=== PATIENT | female | born 1990 | race Caucasian/White ===

== ENCOUNTER → 2017-12-24 | Outpatient (REF) | payer OTHER ==
[2017-12-27 14:12] LABS: HPV HYBRID CAPTURE II Negative (Negative)
== END ==
LOC: M LAB REF 13:43
DX: Z12.4 Encounter for screening for malignant neoplasm of cervix (principal); R87.610 Atypical squamous cells of undetermined significance on cytologic smear of cervix (ASC-US)
CPT/HCPCS: G0123

== ENCOUNTER 2019-04-08 05:44 | Inpatient (IN) | payer OTHER ==
[2019-04-08] VITALS (39 sets, daily range): BP systolic 79–118; BP diastolic 48–83
[~2019-04-08] VITALS: Ht 167.6 cm; Wt 84.8 kg
[2019-04-08] MEDS ORDERED: PRENTAB9 PO (06:21)
[2019-04-08 07:12] LABS: HEMATOCRIT 35.6 % (36.0-47.0); MEAN CORPUSCULAR HEMOGLOBIN 30.8 pg (27.0-33.0); MEAN CORPUSCULAR HGB CONC 33.7 g/dl (32.0-36.5); MEAN CORPUSCULAR VOLUME 91.5 fl (80.0-96.0); PLATELET COUNT, AUTOMATED 259 10^3/uL (150-450); RED BLOOD COUNT 3.89 10^6/uL (4.00-5.40); WHITE BLOOD COUNT 14.2 10^3/uL (4.0-10.0)
[2019-04-08] MEDS ORDERED: LR 800 ML IV ONE (07:30)
--- NOTE | 2019-04-08 07:45 | HPE ---
DATE OF ADMISSION: 04/08/2019 HISTORY: 28-year-old G1, P0 female at 40 and 2/7 weeks gestation by last menstrual period (LMP) consistent with 9-week ultrasound and estimated date of delivery 04/06/2019, presents with regular contractions every 3-4 minutes for the last several hours. Denies vaginal bleeding. Has good movement. The contractions have increased in intensity. COURSE: Patient received care at 9 weeks gestation on 09/02/2018. Her first trimester blood pressure is 102/60, weight 154 pounds. She had no complications. 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 PAST SURGICAL HISTORY: Eye surgery times three. Surgical treatment for Bartholin's gland cyst. ALLERGIES: None. SOCIAL HISTORY: Patient is . She denies cigarettes, alcohol or drug use. Lives in [facility]. FAMILY HISTORY: Noncontributory. PHYSICAL EXAMINATION: Blood pressure 134/70, pulse 84, afebrile. She appears uncomfortable. Head and neck exam normal. Lungs clear. Heart regular rate and rhythm. Abdomin nontender, gravid. heart tones category I. Sterile vaginal exam: 4 cm, 100%, -2, posterior soft vertex, contractions every 2-3 minutes. Extremities nontender. LABS: Blood type A positive, rubella immune, RPR nonreactive. Hepatitis B and C negative. HIV negative. GBS negative on 03/13/2019. ASSESSMENT: 28-year-old G1 at 40 2/7 weeks gestation presents in active labor. PLAN: The patient is admitted on 04/08/2019.
[2019-04-08] MEDS ORDERED: FENTANYL 2MCG/ML ROPIVACAINE 0.2% IN 0.9% NACL 100ML IVBAG As Ordered ONE (08:03)
[2019-04-08] MEDS ORDERED: FENTANYL/ROPIVACAINE/NACL BAG 100 ML EPIDURAL SCH (08:35)
[2019-04-08] MEDS ORDERED: NALOXONE INJ 0.4 MG/1 ML VIAL (J2310) IV PRN (08:35)
[2019-04-08] MEDS ORDERED: EPIDURAL/PCA KEYS XX PRN (08:35)
[2019-04-08] MEDS ORDERED: REFRIGERATOR IV KEYS XX PRN (08:35)
[2019-04-08] MEDS ORDERED: LACTATED RINGER'S 1000 ML IV PRN (08:35)
[2019-04-08] MEDS ORDERED: EPIDURAL COMMENT XX SCH (08:35)
[2019-04-08] MEDS ORDERED: diphenhydrAMINE INJ 50MG/ML VIAL (J1200) IV PRN (08:35)
[2019-04-08] MEDS ORDERED: ONDANSETRON 4MG/2ML VIAL (J2405) IV PRN ×2 (08:35→17:45)
[2019-04-08] MEDS ORDERED: ePHEDrine SULFATE 25 MG/5 ML(5MG/ML) SYRINGE IV PRN (08:35)
[2019-04-08] MEDS ORDERED: LR 1,000 ML IV SCH (09:00)
[2019-04-08] MEDS ORDERED: ePHEDrine SULFATE 25 MG/5 ML(5MG/ML) SYRINGE As Ordered ONE (09:04)
[2019-04-08] MEDS ORDERED: OXYTOCIN DRIP 30 UNITS in APPROPRIATE DILUENT 1 EA IV SCH (13:30)
[2019-04-08] MEDS ORDERED: METHYLERGONOVINE MALEATE 0.2 MG TAB PO PRN (17:45)
[2019-04-08] MEDS ORDERED: OXYTOCIN DRIP 30 UNITS in APPROPRIATE DILUENT 1 EA IV ONE (17:45)
[2019-04-08] MEDS ORDERED: RHOGAM 300 MCG (1500 IU) INJ (J2790) IM SCH (17:45)
[2019-04-08] MEDS ORDERED: ACETAMINOPHEN 500 MG TAB PO PRN (17:45)
[2019-04-08] MEDS ORDERED: MEASLES,MUMPS,RUBELLA VACCINE INJ (MMR-II) (90707) SC SCH (17:45)
[2019-04-08] MEDS ORDERED: DIBUCAINE 1% OINTMENT 30GM TOP PRN (17:45)
[2019-04-08] MEDS ORDERED: DOCUSATE SODIUM 100 MG CAP PO PRN (17:45)
--- NOTE | 2019-04-08 19:20 | DN ---
DATE: 04/08/2019 PREDELIVERY DIAGNOSIS: Term in labor. POSTDELIVERY DIAGNOSIS: Delivered. PROCEDURE: Spontaneous vaginal delivery. LAND DEVELOPER: Dr. Martin Schroeder. ANESTHESIA: Epidural. ESTIMATED BLOOD LOSS: 300 mL. FINDINGS: A 7 pound 14 ounce female with scores 8 and 9. DELIVERY SUMMARY: After approximately one hour of second stage of labor, the patient had spontaneous delivery of a 7 pound 14 ounce female under epidural anesthesia. There is no nuchal cord. The shoulders delivered with ease. The was handed to the mother. The cord was doubly clamped and cut. The placenta delivered spontaneously and appeared to be intact. The patient received intravenous (IV) Pitocin immediately after delivery of the placenta. A first degree perineal laceration was repaired with #2-0 Chromic in the usual fashion. Sponge and needle counts were correct.
[2019-04-09 06:36] VITALS: BP 102/55
[2019-04-09] MEDS: PRENATAL VITAMINS CHEWABLE TABLET PO SCH (08:22)
[2019-04-09 17:28] VITALS: BP 120/60
[2019-04-09] MEDS: IBUPROFEN 800 MG TAB PO PRN (20:51)
[2019-04-10 05:10] VITALS: BP 109/65
[2019-04-10] MEDS: IBUPROFEN 800 MG TAB PO PRN ×2 (05:12→13:20)
[2019-04-10] MEDS ORDERED: PRENCHW PO (06:53)
[2019-04-10] MEDS ORDERED: ACET-683 PO (06:53)
[2019-04-10] MEDS ORDERED: IBUP80TA PO (06:53)
[2019-04-10] MEDS: PRENATAL VITAMINS CHEWABLE TABLET PO SCH (08:07)
== END 2019-04-10 14:23 | disposition home or self-care (01) | DRG 807 ==
LOC: M LDO 05:44 → M LDI 06:31 → M OBS 20:07
PROVIDERS: ADMIT Advanced Practice Midwife; ATTEND Specialist
PROC: 10E0XZZ Delivery of Products of Conception, External Approach (ICD-10-PCS; principal; 2019-04-08)
PROC: 0HQ9XZZ Repair Perineum Skin, External Approach (ICD-10-PCS; 2019-04-08)
DX: O48.0 Post-term pregnancy (principal); Z37.0 Single live birth; Z3A.40 40 weeks gestation of pregnancy; O70.0 First degree perineal laceration during delivery

== ENCOUNTER → 2019-07-22 | Outpatient (REF) ==
[~2019-07-22] MED LIST: ACET-683 PO; IBUP80TA PO; PRENCHW PO; PRENTAB9 PO
== END ==
LOC: M LAB LCGH 09:10
PROVIDERS: ATTEND Physician Assistant
DX: D22.62 Melanocytic nevi of left upper limb, including shoulder (principal)

== ENCOUNTER → 2020-04-28 | Outpatient (REF) | payer BC ==
[2020-04-28 16:03] LABS: HEMATOCRIT 39.2 % (36.0-47.0); HEMOGLOBIN 13.1 g/dl (12.0-15.5); MEAN CORPUSCULAR HEMOGLOBIN 30.7 pg (27.0-33.0); MEAN CORPUSCULAR HGB CONC 33.4 g/dl (32.0-36.5); MEAN CORPUSCULAR VOLUME 91.8 fl (80.0-96.0); PLATELET COUNT, AUTOMATED 236 10^3/uL (150-450); RED BLOOD COUNT 4.27 10^6/uL (4.00-5.40); WHITE BLOOD COUNT 9.4 10^3/uL (4.0-10.0)
[2020-04-28 20:44] LABS: CHLAMYDIA DNA AMPLIFICATION NEGATIVE (NEGATIVE); GC DNA AMPLIFICATION NEGATIVE (NEGATIVE)
[2020-04-28 22:57] LABS: HIV 1&2 SCREEN CENTAUR NEGATIVE (NEGATIVE)
[2020-04-30 10:07] LABS: HEPATITIS C VIRUS ABY INDEX 0.3 INDEX (<0.8)
== END ==
LOC: M PLALAB 13:52
PROVIDERS: ATTEND Advanced Practice Midwife
DX: Z34.91 Encounter for supervision of normal pregnancy, unspecified, first trimester (principal)

== ENCOUNTER → 2020-05-27 | Outpatient (REF) | payer BC | LOC: M SFHCWAGY 07:40 | PROVIDERS: ATTEND Advanced Practice Midwife | DX: Z12.4 Encounter for screening for malignant neoplasm of cervix (principal) ==

== ENCOUNTER → 2020-06-28 | Outpatient (CLI) | payer BC ==
--- NOTE | 2020-07-02 08:29 | REP ---
OBSTETRIC ULTRASOUND CLINICAL: Anatomical assessment. TECHNIQUE: Transabdominal obstetrical ultrasound with color Doppler evaluation. FINDINGS: Single live intrauterine in cephalic presentation. motion was identified by the technologist. Placenta noted posteriorly, grade 1, and without placenta previa or abruption. Amniotic fluid volume is normal. Cervix measures 4 cm in length and appears closed. BIOMETRIC MEASUREMENTS: BPD 43 mm 19 weeks 1 day HC 160 mm 18 weeks 6 days AC 135 mm 19 weeks 0 days FL 29 mm 19 weeks 0 days HL 28 MM 19 weeks 0 days Gestational age by current measurements 19 weeks 0 days with estimated date of delivery 11/22/2020. Estimated weight 266 grams (42nd percentile). Anatomical assessment demonstrates normal cisterna magna, cavum, thalamus, spine, stomach, kidneys/bladder, three-vessel cord/cord insertion, facial features, and extremities. Limited evaluation of the heart/ventricular outflow tracts noted. IMPRESSION: 1. Single live intrauterine in cephalic presentation demonstrating appropriate estimated weight and growth. 2. Limited evaluation of the heart/ventricular outflow tracts noted. Remainder of the anatomical assessment is complete and normal. MTDD
== END ==
LOC: M WHC 13:58
PROVIDERS: ATTEND Advanced Practice Midwife
DX: Z34.82 Encounter for supervision of other normal pregnancy, second trimester (principal)

== ENCOUNTER → 2020-07-28 | Outpatient (CLI) | payer BC ==
--- NOTE | 2020-08-05 09:44 | REP ---
FOLLOW-UP OBSTETRICAL ULTRASOUND CLINICAL: Anatomical reevaluation. FINDINGS: Ultrasound examination demonstrates a single live intrauterine in cephalic presentation. motion was identified by the technologist. Placenta noted posteriorly and grade 1 without placenta previa or abruption. Amniotic fluid volume is normal. Cervix measures 3.0 cm in length and appears closed. No evidence for nuchal cord. Gestational age by current measurements 23 weeks 4 days with estimated date of delivery 11/20/2020. heart rate 156 beats per minute. HC/AC ratio 1.12. Estimated weight 633 grams (55th percentile). Anatomical assessment demonstrates normal cranium, cerebellum, ventricles, choroid plexus, posterior fossa, cisterna magna, facial features, four chamber heart/ventricular outflow tracts, diaphragm, stomach, three-vessel cord/cord insertion, kidneys, bladder, spine, and extremities. IMPRESSION: Single live intrauterine in cephalic presentation demonstrating appropriate estimated weight and growth. Anatomical assessment is complete and normal. No gross abnormalities are identified. MTDD
== END ==
LOC: M WHC 13:47
PROVIDERS: ATTEND Advanced Practice Midwife
DX: Z34.82 Encounter for supervision of other normal pregnancy, second trimester (principal); Z3A.23 23 weeks gestation of pregnancy

== ENCOUNTER → 2020-08-25 | Outpatient (CLI) | payer BC ==
[2020-08-25 14:09] LABS: BASO % 0.4 % (0.0-1.0); EOS # 0.1 10^3/uL (0.0-0.5); EOS % 0.8 % (0.0-3.0); HEMATOCRIT 37.4 % (36.0-47.0); HEMOGLOBIN 12.2 g/dl (12.0-15.5); LYMPH # 1.7 10^3/uL (1.5-5.0); LYMPH % 21.4 % (24.0-44.0); MEAN CORPUSCULAR HEMOGLOBIN 30.3 pg (27.0-33.0); MEAN CORPUSCULAR HGB CONC 32.6 g/dl (32.0-36.5); MONO # 0.4 10^3/uL (0.0-0.8); MONO % 5.4 % (0.0-5.0); NEUTROPHILS # 5.6 10^3/uL (1.5-8.5); NEUTROPHILS % 71.4 % (36.0-66.0); PLATELET COUNT, AUTOMATED 266 10^3/uL (150-450); RED BLOOD COUNT 4.02 10^6/uL (4.00-5.40); WHITE BLOOD COUNT 7.8 10^3/uL (4.0-10.0)
== END ==
LOC: M PLALAB 09:16
PROVIDERS: ATTEND Advanced Practice Midwife
DX: Z34.82 Encounter for supervision of other normal pregnancy, second trimester (principal)

== ENCOUNTER → 2020-08-25 | Outpatient (REF) | payer BC | LOC: M PLALAB 10:12 | PROVIDERS: ATTEND Obstetrics & Gynecology | DX: Z34.82 Encounter for supervision of other normal pregnancy, second trimester (principal) ==

== ENCOUNTER → 2020-10-27 | Outpatient (REF) | payer BC, MEDICAID | LOC: M SFHCWAGY 13:50 | PROVIDERS: ATTEND Advanced Practice Midwife | DX: Z34.83 Encounter for supervision of other normal pregnancy, third trimester (principal); Z3A.00 Weeks of gestation of pregnancy not specified ==